=== PATIENT | male | born 1985 | race American Indian/Alaskan Native ===

== ENCOUNTER 2020-11-09 14:42 | Emergency (ER) | payer SELFPAY ==
[2020-11-09 15:57] VITALS: BP 134/91
== END 2020-11-09 16:52 | disposition left against medical advice (07) ==
LOC: ED 14:42
DX: S09.90XA Unspecified injury of head, initial encounter (principal); Z53.21 Procedure and treatment not carried out due to patient leaving prior to being seen by health care provider; W22.8XXA Striking against or struck by other objects, initial encounter; Y93.89 Activity, other specified; Y92.89 Other specified places as the place of occurrence of the external cause; Y99.8 Other external cause status